=== PATIENT | male | born 1960 | race Hispanic/Latino ===

== ENCOUNTER 2017-11-11 11:16 | Observation (INO) | payer OTHER ==
[~2017-11-11] VITALS: Ht 180.3 cm; Wt 116.1 kg
[~2017-11-11 11:16] MED LIST: MULTIVITAMIN
[2017-11-11] MEDS ORDERED: MORPHINE SULFATE INJ 4 MG/ML INJ IV STA (11:27)
[2017-11-11] MEDS ORDERED: ONDANSETRON HCL INJ 2 MG/ML VIAL IV STA (11:27)
[2017-11-11] MEDS ORDERED: SODIUM CHLORIDE 0.9% 1000ML 1,000 ML IV STA (11:27)
[2017-11-11 12:01] LABS: BASOPHILS % 0.3 % (0.0-1.0); EOSINOPHILS # (AUTO) 0.1 (0.0-0.4); EOSINOPHILS % 0.5 % (0.0-6.0); HEMATOCRIT 42.9 % (38.2-49.6); HEMOGLOBIN 14.4 g/dL (14.0-18.0); LYMPHOCYTES % 15.1 % (18.0-39.1); MEAN CORPUSCULAR HEMOGLOBIN 30.8 pg (28-32); MEAN CORPUSCULAR HGB CONC 33.6 g/dL (31-35); MEAN CORPUSCULAR VOLUME 91.9 fL (81-99); MONOCYTES # (AUTO) 0.8 (0.2-0.8); MONOCYTES % 5.9 % (4.4-11.3); NEUTROPHILS # (AUTO) 10.4 (2.1-6.9); NEUTROPHILS % 77.9 % (38.7-80.0); PLATELET COUNT 270 x10e3/uL (140-360); RED BLOOD COUNT 4.67 x10e6/uL (4.3-5.7); RED CELL DISTRIBUTION WIDTH 12.6 % (11.7-14.4)
[2017-11-11 12:15] LABS: ANION GAP 17.1 mmol/L (8-16); BLOOD UREA NITROGEN 13 mg/dL (7-26); BUN/CREATININE RATIO 13 (6-25); CALCIUM 9.7 mg/dL (8.4-10.2); CARBON DIOXIDE 24 mmol/L (22-29); CHLORIDE 103 mmol/L (98-107); CREATININE, SERUM 0.98 mg/dL (0.72-1.25); EST GLOMERULAR FILTRATION RATE > 60 ML/MIN (60-); GLUCOSE 150 mg/dL (74-118); LIPASE 13 U/L (8-78); POTASSIUM 4.1 mmol/L (3.5-5.1); SODIUM 140 mmol/L (136-145)
[2017-11-11 12:27] LABS: BILIRUBIN,URINE NEGATIVE (NEGATIVE); CLARITY,URINE CLEAR (CLEAR); COLOR,URINE YELLOW (YELLOW); KETONES,URINE NEGATIVE (NEGATIVE); LEUKOCYTE ESTERASE ,URINE NEGATIVE (NEGATIVE); NITRITE,URINE NEGATIVE (NEGATIVE); PROTEIN,URINE DIPSTICK NEGATIVE (NEGATIVE); URINE UROBILINOGEN 0.2 mg/dL (0.2 - 1)
--- NOTE | 2017-11-11 14:37 | Diagnostic Imaging Report ---
EXAMINATION: CT of the abdomen and pelvis with contrast. TECHNIQUE: Helical CT images of the abdomen and pelvis were performed from the lung bases to the lesser trochanters after the intravenous administration of 100 cc of Isovue 300 and the oral administration of none. Coronal and sagittal reformatted images were obtained.Dose modulation, iterative reconstruction, and/or weight based adjustment of the mA/kV was utilized to reduce the radiation dose to as low as reasonably achievable. COMPARISON: None. CLINICAL HISTORY:Abdominal pain, evaluate for appendicitis DISCUSSION: ABDOMEN/PELVIS: LOWER THORAX:Unremarkable. HEPATOBILIARY: Hepatic steatosis. No intra-or extrahepatic biliary ductal dilation. The gallbladder is normal. SPLEEN: No splenomegaly. PANCREAS: No focal masses or ductal dilatation. ADRENALS: No adrenal nodules. KIDNEYS/URETERS: No hydronephrosis, stones, or solid mass lesions. PELVIC ORGANS/BLADDER: The bladder is normal. PERITONEUM/RETROPERITONEUM: No free air or fluid. LYMPH NODES: No intra-abdominal, retroperitoneal, pelvic or inguinal lymphadenopathy. VESSELS: Unremarkable. GI TRACT: Thickening of the appendix 1.4 cm with adjacent stranding. No perforation. Scattered diverticulosis. BONES AND SOFT TISSUE: No bony destructive lesions. Degenerative disc disease L4-L5 degenerative anterolisthesis. IMPRESSION: Acute nonruptured appendicitis. Discussed with Dr. Milian at 232pm. Signed by: Dr. Wale Posey M.D. on 11/11/2017 2:34 PM
[2017-11-11] MEDS ORDERED: ONDANSETRON HCL INJ 2 MG/ML VIAL IV PRN (14:45)
[2017-11-11] MEDS ORDERED: MORPHINE SULFATE 2 MG/ML SYR IV PRN (14:45)
[2017-11-11] MEDS: SODIUM CHLORIDE 0.9% 1000ML 1,000 ML IV SCH ×3 (14:47→19:38)
[2017-11-11] MEDS ORDERED: PIPER-TAZ 3.375 GM / NS 50ML IV SCH ×2 (14:50→22:00)
[2017-11-11 14:55] LABS: EPITHELIAL CELLS,URINE RARE /LPF
[2017-11-11] MEDS ORDERED: SODIUM CHLORIDE 0.9% 50ML 50 ML ONE ×2 (14:55→16:00)
[2017-11-11 15:48] VITALS: BP 163/90
[2017-11-11] MEDS ORDERED: IOPAMIDOL 370 MG/ML 200 ML INFUS..BTL INJ ONE (16:00)
[2017-11-11] MEDS ORDERED: LISINOPRIL10 MG PO (16:10)
[2017-11-11 16:59] VITALS: BP 163/90
[2017-11-11] MEDS ORDERED: BUPIVACAINE 0.25%/EPI 30ML SDV INJ ONE (17:01)
[2017-11-11] MEDS ORDERED: GLUCAGON FOR INJ 1 MG VIAL ONE (18:22)
[2017-11-11] MEDS ORDERED: ONDANSETRON HCL INJ 2 MG/ML VIAL ONE (18:22)
[2017-11-11] MEDS ORDERED: DEXAMETHASONE SOD PHOS INJ 4 MG/ML VIAL ONE (18:22)
[2017-11-11] MEDS ORDERED: EPHEDRINE SULFATE INJ 50 MG/10 ML SYR ONE (18:22)
[2017-11-11] MEDS ORDERED: PROPOFOL IV EMULSION 10 MG/ML 20 ML VIAL ONE (18:22)
[2017-11-11] MEDS ORDERED: NEOSTIGMINE 5 MG/5ML SYR ONE (18:22)
[2017-11-11] MEDS ORDERED: GLYCOPYRROLATE INJ 1MG/ 5 ML SYR ONE (18:22)
[2017-11-11] MEDS ORDERED: SEVOFLURANE INHAL SOLN 250 ML PEN BTL ONE (18:22)
[2017-11-11] MEDS ORDERED: LIDOCAINE HCL 2% LOCAL INJ 5 ML SDV VIAL INJ ONE (18:22)
[2017-11-11] MEDS ORDERED: KETOROLAC TROMETHAMINE 30 MG/ML VIAL IV PRN (19:00)
[2017-11-11] MEDS ORDERED: ACETAMINOPHEN 1000 MG/100 ML IV PRN (19:00)
[2017-11-11] MEDS ORDERED: HYDROMORPHONE 1MG/1ML INJ IV PRN (19:00)
[2017-11-11] MEDS ORDERED: PANTOPRAZOLE 40 MG 10ML VIAL IV SCH (19:00)
[2017-11-11] MEDS ORDERED: MIDAZOLAM HCL 2 MG/2 ML VIAL ONE (19:05)
[2017-11-11] MEDS ORDERED: FENTANYL CITRATE/PF 100MCG/2 ML INJ ONE ×3 (19:05→19:20)
[2017-11-11] MEDS ORDERED: HYDROMORPHONE 2MG/ML 2 MG/ML ML IV PRN (19:15)
[2017-11-11] MEDS ORDERED: PANTOPRAZOLE 40 MG 10ML VIAL ONE (19:25)
[2017-11-11 19:38] VITALS: BP 132/57
[2017-11-11 20:00] VITALS: BP 132/57
[2017-11-11] MEDS ORDERED: HYDRALAZINE HCL 20 MG/ML VIAL IV PRN (20:00)
[2017-11-11] MEDS ORDERED: DEXTROSE 50% SYRINGE 50 ML IV PRN (20:00)
[2017-11-11] MEDS: INSULIN LISPRO 100 UNIT/1 ML 3ML VIAL SQ SCH (21:45)
--- NOTE | 2017-11-11 21:48 | Operative Report ---
DATE OF PROCEDURE: November 11, 2017 PREOPERATIVE DIAGNOSIS: Acute appendicitis. POSTOPERATIVE DIAGNOSIS: Acute appendicitis. OPERATION PERFORMED: Laparoscopic appendectomy. ANESTHESIA: General. COMPLICATIONS: None. ESTIMATED BLOOD LOSS: Minimal. DESCRIPTION OF PROCEDURE: With the patient lying in bed in the supine position under good general endotracheal anesthesia, the abdomen was prepped with Betadine solution and draped in the usual manner. A Veress needle was introduced into the right upper quadrant, and pneumoperitoneum was established without any difficulty. A 5-mm trocar was placed in the right upper quadrant and a 5-mm video laparoscope was placed into the intra-abdominal cavity. Video laparoscopy at this point revealed no intra-abdominal adhesions from the patient's previous umbilical hernia repair. A 12-mm trocar was then placed in the umbilical area and two more 5-mm trocars were placed in the left lower quadrant and the suprapubic region. Laparoscopy at this point revealed an acutely inflamed appendix that was stuck to the lateral gutter. The rest of the abdominal exploration looked to be otherwise within normal limits. The appendix was then mobilized over the lateral gutter sharply and the cecum was then mobilized upwards. The base of the appendix was then dissected and divided with 2 applications of the Endo SEN stapler. Mesentery of the appendix was divided with 2 applications of the Endo SEN vascular stapler. The appendix was placed in a pouch and removed through the umbilicus without any difficulty. Video laparoscopy was again carried out. The whole area was thoroughly irrigated. Perfect hemostasis was ascertained. All of the excess fluid was aspirated. The pneumoperitoneum was evacuated, and all the trocars were removed under direct vision. The midline fascia at the umbilicus was then closed with a figure-of-8 of #0 Vicryl. All layers were infiltrated on the way out with solution of 0.25% Marcaine. Subcutaneous tissue was approximated with 3-0 Vicryl and the skin was closed with subcuticular 5-0 Vicryl. Benzoin, Steri-Strips, and Band-Aids were applied. The sponge, lap, and needle count was correct. The patient tolerated the procedure well and returned to the recovery room in stable condition. Job#: [id number]
[2017-11-11] MEDS: HYDROCODONE/APAP 7.5MG-325MG 1 EA TAB PO PRN (21:58)
[2017-11-11] MEDS: CEFOXITIN SOD 1 GM VIAL IV SCH (23:43)
[2017-11-12] VITALS: BP 101/59
[2017-11-12] MEDS ORDERED: CEFOXITIN 1GM/ DEXTROSE 50ML 50 ML IV SCH
[2017-11-12 04:00] VITALS: BP 103/54
[2017-11-12] MEDS: HYDROCODONE/APAP 7.5MG-325MG 1 EA TAB PO PRN ×2 (05:10→17:02)
[2017-11-12 05:40] LABS: BASOPHILS % 0.2 % (0.0-1.0); HEMATOCRIT 37.5 % (38.2-49.6); HEMOGLOBIN 12.5 g/dL (14.0-18.0); LYMPHOCYTES % 9.6 % (18.0-39.1); MEAN CORPUSCULAR HGB CONC 33.3 g/dL (31-35); MEAN CORPUSCULAR VOLUME 93.1 fL (81-99); MONOCYTES # (AUTO) 0.6 (0.2-0.8); MONOCYTES % 5.4 % (4.4-11.3); NEUTROPHILS # (AUTO) 8.9 (2.1-6.9); NEUTROPHILS % 84.4 % (38.7-80.0); PLATELET COUNT 222 x10e3/uL (140-360); RED BLOOD COUNT 4.03 x10e6/uL (4.3-5.7); RED CELL DISTRIBUTION WIDTH 12.8 % (11.7-14.4)
[2017-11-12] MEDS: CEFOXITIN SOD 1 GM VIAL IV SCH ×2 (05:52→13:04)
[2017-11-12] MEDS: SODIUM CHLORIDE 0.9% 1000ML 1,000 ML IV SCH ×2 (05:52→15:30)
[2017-11-12 07:05] LABS: ANION GAP 15.2 mmol/L (8-16); BLOOD UREA NITROGEN 10 mg/dL (7-26); BUN/CREATININE RATIO 11 (6-25); CALCIUM 9.4 mg/dL (8.4-10.2); CARBON DIOXIDE 23 mmol/L (22-29); CHLORIDE 105 mmol/L (98-107); CREATININE, SERUM 0.95 mg/dL (0.72-1.25); EST GLOMERULAR FILTRATION RATE > 60 ML/MIN (60-); GLUCOSE 187 mg/dL (74-118); POTASSIUM 4.2 mmol/L (3.5-5.1); SODIUM 139 mmol/L (136-145)
[2017-11-12] MEDS: INSULIN LISPRO 100 UNIT/1 ML 3ML VIAL SQ SCH ×3 (07:30→16:20)
[2017-11-12 08:11] VITALS: BP 115/59
[2017-11-12 08:42] VITALS: BP 115/59
[2017-11-12] MEDS ORDERED: LISINOPRIL 10 MG TAB PO SCH ×2 (09:00)
[2017-11-12 12:08] VITALS: BP 111/59
[2017-11-12] MEDS ORDERED: TYLENOL # 31 EA PO (18:27)
[2017-11-12] MEDS ORDERED: LEVAQUIN500 MG PO (18:28)
== END 2017-11-12 19:25 | disposition home or self-care (01) ==
LOC: ER 11:16 → ERHOLD 14:35 → INTOOBSV 14:35 → MED/SURG 15:46
PROVIDERS: ADMIT Family Medicine; ATTEND Family Medicine
DX: K35.80 Unspecified acute appendicitis (principal); I10 Essential (primary) hypertension; E11.9 Type 2 diabetes mellitus without complications
CPT/HCPCS: 36415 ×2; 44970; 74177; 80048 ×2; 81001; 82948 ×2; 83690; 85025 ×2; 87086; 88304; 99284; C1766; G0378 ×2; J0694 ×2; J1100; J1610; J2001; J2250; J2405; J2543; J3490; J7030 ×2; Q9967; J2270

== ENCOUNTER → 2018-03-05 | Outpatient (CLI) | payer OTHER ==
[~2018-03-05] MED LIST changes: +LEVAQUIN500 MG PO; +LISINOPRIL10 MG PO; +TYLENOL # 31 EA PO
--- NOTE | 2018-03-05 08:49 | Diagnostic Imaging Report ---
EXAM: Right upper quadrant abdominal ultrasound INDICATION: Right upper quadrant pain COMPARISON: None. TECHNIQUE: Transverse and longitudinal images of the right upper quadrant abdomen were obtained FINDINGS: Liver: Size: 15.6 cm in the right midclavicular line, upper limits of normal Appearance: Increased echogenicity, smooth contour Mass: No focal masses Gallbladder: No distention, pericholecystic fluid, wall thickening, stone, or reported sonographic Mauro's sign. Gallbladder wall measures 0.2 cm. Bile Ducts: Intrahepatic Ducts: No dilatation Extrahepatic Ducts: Common bile duct measures 0.2 cm, no dilatation Pancreas: Not well visualized due to overlying bowel gas. Kidney: The right kidney measures 11.5 cm without evidence of hydronephrosis or stone. Vessels: Aorta: The proximal abdominal aorta is not well visualized due to overlying bowel gas. The mid abdominal aorta measures 1.6 cm. Inferior Vena Cava: Not well visualized due to overlying bowel gas. Main Portal Vein: 1.0 cm, normal size with hepatopetal flow. Free Fluid: No evidence of ascites. IMPRESSION: No sonographic evidence of cholelithiasis or cholecystitis. Hepatic steatosis. Signed by: Dr. Karen Dennis MD on 03/05/2018 8:46 AM
== END ==
LOC: US 07:24
PROVIDERS: ATTEND Surgery
DX: R10.11 Right upper quadrant pain (principal); K30 Functional dyspepsia
CPT/HCPCS: 76705

== ENCOUNTER → 2018-06-19 | Day surgery (SDC) | payer OTHER ==
[~2018-06-19] MED LIST changes: +CRESTOR10 MG; +FENTANYL CITRATE/PF 100MCG/2 ML INJ ONE; +HYOSCYAMINE SULFATE 0.5 MG/ML INJ ONE; +JANUMET 50-1,01 EACH; +LIDOCAINE HCL 2% LOCAL INJ 5 ML SDV VIAL INJ ONE; +MIDAZOLAM HCL 2 MG/2 ML VIAL ONE; +PROPOFOL IV EMULSION 10 MG/ML 50 ML VIAL ONE
--- OUTSIDE RECORDS SUMMARY | 2018-06-19 12:16 | XMS REPORT | Continuity of Care Document ---
Author Author [facility] Interface Address Unknown Phone Unavailable Problems Problem Status Onset Date Classification Date Reported Comments Source Hypertensive disorder 08/15/2017 Diagnosis 08/16/2017 [facility] Body mass index 30+ - obesity 08/15/2017 Diagnosis 08/16/2017 [facility] Abdominal pain 08/15/2017 Diagnosis 08/16/2017 [facility] Constipation 08/15/2017 Diagnosis 08/16/2017 [facility] Medications Medication Details Route Status Patient Instructions Ordering Provider Order Date Source Lactulose 667 MG/ML Oral Solution lactulose 10 gram/15 mL (15 mL) oral solution Take 30 mL every 12 hours by oral route as needed for 2 days. Active [facility] Lisinopril 20 MG Oral Tablet lisinopril 20 mg tablet Active [facility] Rosuvastatin calcium 10 MG Oral Tablet rosuvastatin 10 mg tablet Active [facility] Allergies, Adverse Reactions, Alerts Substance Category Reaction Severity Reaction type Status Date Reported Comments Source Immunizations Immunization Date Given Site Status Last Updated Comments Source influenza, injectable, quadrivalent 02/16/2017 completed [facility] Results Order Name Results Value Reference Range Date Interpretation Comments Source Vital Signs Vital Sign Value Date Comments Source Diastolic (mm Hg) 100 08/15/2017 [facility] Height 71 08/15/2017 [facility] Systolic (mm Hg) 150 08/15/2017 [facility] Weight 253 08/15/2017 [facility] Encounters Location Location Details Encounter Type Encounter Number Reason For Visit Attending Provider ADM Date DC Date Status Source [place] - [facility] - [id number]RimeuzyjPati Smith, SUPERVISORY [employer] OFFICER-C: [address] [place] [address], Ph. [phone] [id number] Minoo Smith 08/15/2017 [facility] Procedures Procedure Code Date Perfomer Comments Source
[2018-06-19 17:30] VITALS: BP 114/78
--- NOTE | 2018-06-19 23:44 | Operative Report ---
DATE OF PROCEDURE: 06/19/2018 SURGEON: Dimas Roy MD PROCEDURE: EGD with biopsies and colonoscopy with polypectomy. INDICATION FOR EGD: Bloating primarily postprandially, history of black stools. INDICATIONS FOR COLONOSCOPY: Colorectal cancer screening. MEDICATIONS: The patient was done under MAC, please see anesthesiologist's note. PROCEDURE IN DETAIL: With the patient in the left lateral decubitus position, flexible fiberoptic Olympus gastroscope was introduced into the esophagus under direct visualization without any difficulty. There was some patchy erythema noted in distal esophagus. An ulcerated nodule was noted at the GE junction that was biopsied. The scope was then advanced with ease into the stomach. Mucosa overlying the antrum and the body revealed some patchy erythema and low-grade to moderate edema and biopsies were obtained and sent to stain for H pylori. The pylorus was of normal contour and shape, was intubated with ease and it was advanced all the way to the second portion of the duodenum. Biopsies were obtained from the proximal second portion to rule out sprue. The duodenal bulb was somewhat nodular and biopsies were obtained. The scope was then withdrawn back into the stomach and retroflexed mucosa overlying the fundus and cardia appeared to be within normal limits. The scope was then straightened out, it was subsequently withdrawn. The patient tolerated procedure well. IMPRESSION: 1. Distal esophagitis. 2. Ulcerated nodule, GE junction biopsied. 3. Gastritis, biopsied. Biopsies sent to stain for H pylori. 4. Nodular duodenal bulb, biopsies obtained. 5. Rule out sprue. PLAN: Followup histology. Initiate Protonix 40 mg one p.o. q.a.m. a.c. The patient was then turned around. After adequate lubrication of the anal canal, a flexible fiberoptic Olympus colonoscope was inserted into the rectum with ease and advanced all the way to the cecum. One polyp was removed per the cold biopsy forceps from the cecum. The rest of the cecum grossly appeared to be within normal limits other than for an AVM that was not actively bleeding. The scope was then withdrawn slowly mucosa overlying the ascending and the transverse appeared to be within normal limits. One polyp was hot biopsied from the descending colon. Diverticular disease was noted to involve the sigmoid colon. Two polyps were hot biopsied from the sigmoid. One polyp was hot biopsied from the rectum. The scope was then retroflexed into the distal rectum and small internal hemorrhoids were noted, none of which was actively bleeding. The scope was then straightened out, it was subsequently withdrawn. The patient tolerated procedure well. IMPRESSION: 1. Cecal polyp excised with the cold biopsy forceps. 2. Descending colon polyp, hot biopsied. 3. Sigmoid colon polyps x2, hot biopsied. 4. Diverticulosis. 5. Rectal polyp, hot biopsied. 6. Internal hemorrhoids, none actively bleeding. PLAN: Followup histology. Initiate high-fiber, low-fat diet. Initiate high-fiber supplement. The patient might benefit from a followup colonoscopy in 3 years. Dimas Roy MD [facility] [place] /[id number] cc: Edmond Landry MD
== END | disposition home or self-care (01) ==
LOC: OR 12:14
PROVIDERS: ATTEND Internal Medicine Gastroenterology
DX: Z12.11 Encounter for screening for malignant neoplasm of colon (principal); D12.0 Benign neoplasm of cecum; D12.4 Benign neoplasm of descending colon; K62.1 Rectal polyp; K55.20 Angiodysplasia of colon without hemorrhage; K29.50 Unspecified chronic gastritis without bleeding; K22.70 Barrett's esophagus without dysplasia; K31.89 Other diseases of stomach and duodenum; K57.30 Diverticulosis of large intestine without perforation or abscess without bleeding; K64.8 Other hemorrhoids; G47.33 Obstructive sleep apnea (adult) (pediatric); I10 Essential (primary) hypertension; E78.5 Hyperlipidemia, unspecified; E11.9 Type 2 diabetes mellitus without complications; Z01.810 Encounter for preprocedural cardiovascular examination; Z79.84 Long term (current) use of oral hypoglycemic drugs; Z68.37 Body mass index [BMI] 37.0-37.9, adult; Z80.0 Family history of malignant neoplasm of digestive organs
CPT/HCPCS: 36415; 43239; 45380; 45384; 82948; 93005; J1980; J2001; J2250; J2704; 45378

== ENCOUNTER → 2018-11-05 | Outpatient (CLI) | payer OTHER ==
[~2018-11-05] MED LIST changes: -FENTANYL CITRATE/PF 100MCG/2 ML INJ ONE; -HYOSCYAMINE SULFATE 0.5 MG/ML INJ ONE; -LIDOCAINE HCL 2% LOCAL INJ 5 ML SDV VIAL INJ ONE; -MIDAZOLAM HCL 2 MG/2 ML VIAL ONE; -PROPOFOL IV EMULSION 10 MG/ML 50 ML VIAL ONE
== END ==
LOC: CARD 10:52
PROVIDERS: ATTEND Family Medicine
DX: I73.9 Peripheral vascular disease, unspecified (principal)
CPT/HCPCS: 93931